=== PATIENT | female | born 1995 | race Caucasian/White ===

== ENCOUNTER 2017-08-19 08:43 | Emergency (ER) | payer OTHER | END 2017-08-19 09:39 | disposition home or self-care (01) | LOC: FTE 08:43 | DX: R05 Cough (principal) | CPT/HCPCS: 99283; Z7502 ==

== ENCOUNTER 2018-10-13 11:52 | Emergency (ER) | payer OTHER | END 2018-10-13 14:29 | disposition home or self-care (01) | LOC: FTE 11:52 | DX: M67.442 Ganglion, left hand (principal) | CPT/HCPCS: 99282; Z7502 ==